=== PATIENT | female | born 1990 | race African-American/Black ===

== ENCOUNTER 2022-10-21 15:55 | Emergency (ER) | payer OTHER, SELFPAY ==
[2022-10-21] MEDS ORDERED: Acetaminophen 500 MG TAB ONE (16:34)
[2022-10-21] MEDS ORDERED: Dexamethasone 10 MG/ML VIAL ONE (16:35)
== END 2022-10-21 17:30 | disposition home or self-care (01) ==
LOC: CSHERS 15:55
DX: J02.8 Acute pharyngitis due to other specified organisms (principal); Z20.822 Contact with and (suspected) exposure to COVID-19
CPT/HCPCS: 87081; 87430; 87804; 99283; J1100; U0003; U0005

== ENCOUNTER 2022-10-23 13:46 | Emergency (ER) | payer OTHER | END 2022-10-23 14:39 | disposition home or self-care (01) | LOC: CSHERS 13:46 | DX: J02.9 Acute pharyngitis, unspecified (principal); H92.02 Otalgia, left ear; Z20.822 Contact with and (suspected) exposure to COVID-19 | CPT/HCPCS: 99282 ==

== ENCOUNTER 2023-02-22 12:54 | Emergency (ER) | payer OTHER ==
[2023-02-22] MEDS ORDERED: Ibuprofen 200 MG TAB ONE (13:47)
== END 2023-02-22 14:38 | disposition home or self-care (01) ==
LOC: CSHERS 12:54
DX: S93.602A Unspecified sprain of left foot, initial encounter (principal); W01.0XXA Fall on same level from slipping, tripping and stumbling without subsequent striking against object, initial encounter; Y92.511 Restaurant or cafe as the place of occurrence of the external cause